=== PATIENT | male | born 1955 | race Caucasian/White ===

== ENCOUNTER → 2016-06-06 | Outpatient (CLI) | payer OTHER ==
[~2016-06-06] MED LIST: ATOR-22 PO; AZIT250T PO; GLC5 PO; GLC500 PO; LISI-461 PO
[2016-06-06 11:23] LABS: ALT/SGPT 19 U/L (12-78); AST/SGOT 6 U/L (15-37); BLOOD UREA NITROGEN 15 mg/dl (7-18); BUN/CREATININE RATIO 12.2 (10-20); CALCIUM 9.3 mg/dl (8.5-10.1); CARBON DIOXIDE 28 mmol/L (21-32); CHLORIDE 105 mmol/L (98-107); GLUCOSE 192 mg/dl (70-99); POTASSIUM 4.5 mmol/L (3.5-5.1); SODIUM 142 mmol/L (136-145)
[2016-06-06 11:24] LABS: ESTIMATED AVERAGE GLUCOSE 197 mg/dl; HA1C FLAG Normal (Normal)
[2016-06-06 11:26] LABS: CHOLESTEROL 138 mg/dl (0-200); CHOLESTEROL/HDL RATIO 4.6; HDL CHOLESTEROL 30 mg/dl; LDL CHOLESTEROL CALCULATED 65 mg/dl; TRIGLYCERIDES 215 mg/dl (0-150); VERY LOW DENSITY LIPOPROT CALC 43 mg/dl
[2016-06-06 11:44] LABS: BASO % 0.5 %; BASO ABS # 0.04 K/uL (0-0.2); COMPLETE YES; EOS % 2.7 %; HEMATOCRIT 51.3 % (42-52); IG% 0.5 %; LARGE PLATELETS 1+; LYMPH % 26.3 %; LYMPH ABS # 2.31 K/uL (1.2-3.4); MEAN CELL VOLUME 95.5 fL (80-100); MEAN CORPUSCULAR HEMOGLOBIN 34.5 pg (25-34); MEAN CORPUSCULAR HGB CONC 36.1 g/dl (32-36); MEAN PLATELET VOLUME 12.5 fL (7.4-10.4); MONO % 8.3 %; NEUT % 61.7 %; PLATELET COUNT 115 K/uL (130-400); RED BLOOD COUNT 5.37 M/uL (4.7-6.1); WHITE BLOOD COUNT 8.78 K/uL (4.8-10.8)
== END | disposition home or self-care (01) ==
LOC: C.LAB1850 10:10
PROVIDERS: ATTEND Internal Medicine
DX: E11.9 Type 2 diabetes mellitus without complications (principal)

== ENCOUNTER → 2016-11-20 | Outpatient (CLI) | payer OTHER ==
[2016-11-21 06:29] LABS: ESTIMATED AVERAGE GLUCOSE 183 mg/dl; HA1C FLAG Normal (Normal)
== END | disposition home or self-care (01) ==
LOC: C.LAB1850 15:18
PROVIDERS: ATTEND Internal Medicine
DX: E78.00 Pure hypercholesterolemia, unspecified (principal)

== ENCOUNTER → 2017-03-05 | Outpatient (CLI) | payer OTHER ==
[2017-03-05 12:35] LABS: ALT/SGPT 19 U/L (12-78); AST/SGOT 9 U/L (15-37); BLOOD UREA NITROGEN 24 mg/dl (7-18); BUN/CREATININE RATIO 21.9 (10-20); CALCIUM 9.4 mg/dl (8.5-10.1); CARBON DIOXIDE 25 mmol/L (21-32); CHLORIDE 106 mmol/L (98-107); GLUCOSE 173 mg/dl (70-99); POTASSIUM 4.3 mmol/L (3.5-5.1); SODIUM 138 mmol/L (136-145); URIC ACID 4.4 mg/dl (2.6-7.2)
[2017-03-05 12:41] LABS: HEMATOCRIT 51.9 % (42-52); MEAN CELL VOLUME 98.7 fL (80-100); MEAN CORPUSCULAR HEMOGLOBIN 33.5 pg (25-34); MEAN CORPUSCULAR HGB CONC 33.9 g/dl (32-36); MEAN PLATELET VOLUME 12.6 fL (7.4-10.4); PLATELET COUNT 129 K/uL (130-400); RED BLOOD COUNT 5.26 M/uL (4.7-6.1); WHITE BLOOD COUNT 8.41 K/uL (4.8-10.8)
[2017-03-05 12:43] LABS: BASO % 0.6 %; BASO ABS # 0.05 K/uL (0-0.2); COMPLETE YES; EOS % 3.9 %; GIANT PLATELETS 1+; HYPERSEGMENTED POLYS 1+; IG% 0.6 %; LYMPH % 27.8 %; LYMPH ABS # 2.34 K/uL (1.2-3.4); NEUT % 59.1 %; PLT ESTIMATE DECREASED
[2017-03-05 12:45] LABS: CHOLESTEROL 142 mg/dl (0-200); CHOLESTEROL/HDL RATIO 4.3; HDL CHOLESTEROL 33 mg/dl; LDL CHOLESTEROL CALCULATED 72 mg/dl; THYROID STIMULATING HORMONE 0.348 uIu/ml (0.300-4.500); TRIGLYCERIDES 187 mg/dl (0-150); VERY LOW DENSITY LIPOPROT CALC 37 mg/dl
[2017-03-05 13:46] LABS: URINE APPEARANCE CLEAR (CLEAR); URINE BILIRUBIN NEG (NEG); URINE COLOR YELLOW; URINE EPITHELIAL CELL AUTO 0-5 /lpf (0-5); URINE NITRITE NEG (NEG); URINE PH 6.5 (4.5-7.5); URINE SPECIFIC GRAVITY 1.017 (1.000-1.030); UROBILINOGEN NEG (NEG)
[2017-03-05 13:49] LABS: MANUAL MICROSCOPIC REQUIRED? NO; REVIEW REQ? NO
== END | disposition home or self-care (01) ==
LOC: C.LAB1850 09:57
PROVIDERS: ATTEND Internal Medicine
DX: R31.29 Other microscopic hematuria (principal)

== ENCOUNTER → 2017-06-14 | Outpatient (CLI) | payer OTHER ==
[2017-06-15 06:56] LABS: HEMOGLOBIN A1C 8.8 % (4.5-5.6)
== END | disposition home or self-care (01) ==
LOC: C.LAB1850 15:06
PROVIDERS: ATTEND Internal Medicine
DX: E78.00 Pure hypercholesterolemia, unspecified (principal)

== ENCOUNTER → 2017-09-16 | Outpatient (CLI) | payer OTHER ==
[2017-09-16 12:30] LABS: ALT/SGPT 17 U/L (12-78); AST/SGOT 8 U/L (15-37); BLOOD UREA NITROGEN 19 mg/dl (7-18); CALCIUM 9.5 mg/dl (8.5-10.1); CARBON DIOXIDE 28 mmol/L (21-32); CHOLESTEROL 147 mg/dl (0-200); CREATININE 1.09 mg/dl (0.60-1.40); GLUCOSE 147 mg/dl (70-99); POTASSIUM 4.3 mmol/L (3.5-5.1); SODIUM 141 mmol/L (136-145)
[2017-09-16 12:33] LABS: LDL CHOLESTEROL CALCULATED 78 mg/dl
[2017-09-16 12:42] LABS: HEMOGLOBIN A1C 7.5 % (4.5-5.6)
[2017-09-16 12:59] LABS: HEMOGLOBIN 17.3 g/dL (14.0-18.0); MEAN CORPUSCULAR HEMOGLOBIN 34.6 pg (25-34); MEAN CORPUSCULAR HGB CONC 35.3 g/dl (32-36); MEAN PLATELET VOLUME 12.2 fL (7.4-10.4); PLATELET COUNT 119 K/uL (130-400); RED CELL DISTRIBUTION WIDTH CV 13.7 % (11.5-14.5); RED CELL DISTRIBUTION WIDTH SD 48.6 fL (36.4-46.3); WHITE BLOOD COUNT 9.03 K/uL (4.8-10.8)
[2017-09-16 13:01] LABS: BASO % 0.7 %; BASO ABS # 0.06 K/uL (0-0.2); EOS ABS # 0.36 K/uL (0-0.5); IG# 0.02 K/uL (0.00-0.02); LYMPH % 23.5 %; LYMPH ABS # 2.12 K/uL (1.2-3.4); MONO % 8.1 %; MONO ABS # 0.73 K/uL (0.11-0.59); NEUT % 63.5 %; NEUT ABS # 5.74 K/uL (1.4-6.5)
== END | disposition home or self-care (01) ==
LOC: C.LAB1850 10:27
PROVIDERS: ATTEND Internal Medicine
DX: H35.30 Unspecified macular degeneration (principal)

== ENCOUNTER 2019-12-11 17:05 | Inpatient (IN) ==
[2019-12-11] MEDS ORDERED: ASPIRIN CHEW 324 MG PO STA (17:26)
[2019-12-11] MEDS ORDERED: SODIUM CHLORIDE 0.9% 1000ML 1,000 ML IV STA (17:26)
[2019-12-11] MEDS ORDERED: NITROGLYCERIN SL 0.4 MG/TAB TAB SL PRN (17:26)
[2019-12-11] MEDS ORDERED: NiCARDipine HCL INJ 2.5 MG/ML 10 ML AMP ONE (17:33)
[2019-12-11] MEDS ORDERED: HEPARIN (PORCINE) 1000 UNIT/ML 10 ML (CATH LAB USE ONLY) ONE ×2 (17:33→18:13)
[2019-12-11] MEDS ORDERED: fentaNYL citrate 100 MCG/2 ML VIAL ONE (17:34)
[2019-12-11] MEDS ORDERED: NITROGLYCERIN/D5W 100MCG/ML 20ML SYR ONE (17:34)
[2019-12-11] MEDS ORDERED: MIDAZOLAM HCL 1 MG/ML 2ML VIAL ONE (17:34)
--- NOTE | 2019-12-11 17:36 | Emergency Department Note ---
Impression & Plan Acute [place] ED Provider Note NAME: SHEILA GEORGE AGE: 64 SEX: M ARRIVES VIA: Walk-In INFORMANT: patient ED PROVIDER(S): Dario Perkins MD CHIEF COMPLAINT: Chest pain PLAN: Disposition: Admitted Condition: Guarded MEDICAL DECISION MAKING: Patient presented to the ER with acute chest pain. ECG was done in triage and revealed acute ST elevation [place] anteriorly. Heart alert was initiated. I evaluated the patient immediately. He was uncomfortable but hemodynamically stable. He was given nitroglycerin x2 and aspirin. He was feeling somewhat better with this. Consultation was placed urgently with Dr. Garg of interventional cardiology. Patient's i-STAT was unremarkable except for mild hyperglycemia. Dr. Garg promptly evaluated the patient in the ER and agreed with the assessment of acute ST elevation [place]. He consented the patient for cardiac catheterization and the patient was taken emergently to the cardiac Industrial Property Appraiser. The patient's troponin came back moderately elevated consistent with the diagnosis. Triage Nursing notes reviewed and agree them. [Additional history obtained from] patient's significant other Vital Signs: reviewed and remarkable for hypertension Differential diagnosis: Cardiac ischemia, aortic dissection, pulmonary embolism, pneumothorax, pneumonia, pericarditis, myocarditis, esophageal rupture, GERD, cholecystitis, pancreatitis, musculoskeletal, as well as other pathologies. ER treatment provided: ASA 81 x 4 NTG sl Diagnostics interpreted by me: ECG:Rate:92 Rhythm:AFIB [place]:Nml QRS:Low voltage ST segements:ST elevation anterolaterally which is new compared to 01/21/2007 Other:No pac or pvcs Cardiac Monitoring: Cardiac monitoring ordered by me: The patient was placed on continuous cardiac monitoring and observed. It revealed afib at 93 beats per minute without ectopy or evidence of dysrhythmia. Laboratory studies: [See below] unremarkable istat except for hyperglycemia. Consultation(s): Heart Alert, Cardiology- DR. iWlly Garg HPI: The patient is a 64 year old male who presents to the Emergency Room with complaints of chest pain. This started this afternoon and is left sided. The patient also notes the following associated symptoms, nausea and tingling in the fingers and jaw. The patient has taken no medication relieving factors. Current pain is rated as 6/10. notes he was complaining of chest pain intermittently over the last two weeks. Pt denies LOC, headache, fevers, chills, diaphoresis, visual changes, neck pain, breathing difficulties, vomiting , abdominal pain, back pain, melena, hematochezia, urinary symptoms, weakness, lymphadenopathy, rash, or other complaints. ROS: See above HPI for pertinent positives & negatives. A total of [10] systems reviewed and were otherwise negative. PAST MEDICAL HISTORY:[See Below] PAST SURGICAL HISTORY:[See Below] FAMILY HISTORY:[See Below] SOCIAL HISTORY:[See Below] HOME MEDICATIONS:[See Below] ALLERGIES:[See Below] VITALS:[See Below] PHYSICAL EXAMINATION: GENERAL: Awake, alert, well-appearing, in no distress HENT: Normocephalic, atraumatic. Oropharynx unremarkable. EYES: Normal conjunctiva. Sclera non-icteric. NECK: Inspection normal. Non-tender. Supple. No nuchal rigidity. FROM. No masses. RESPIRATORY: Clear to auscultation. No wheezes. No rales. Normal respiratory effort. CARDIAC: Normal rate. Normal rhythm. No murmurs. No rubs. Extremities warm and well perfused. Pulses equal. No JVD. GI: Soft, non-distended. No tenderness to palpation. No rebound or guarding. No masses. RECTAL: Deferred. MUSCULOSKELETAL: Atraumatic. Chest examination reveals no tenderness. The back is symmetrical on inspection without obvious abnormality. There is no CVA tenderness to palpation. No joint edema. LOWER EXTREMITIES: Calves are equal size bilaterally and non-tender. No edema. No discoloration. NEURO: Normal sensorium. No sensory or motor deficits noted. SKIN: No rash or jaundice noted. ED COURSE: Critical Care: I have personally spent greater than 35 minutes of critical care time in the direct management of this patient. This includes bedside care, interpretation of diagnostic studies, and testing, discussion with consultants, patient, and family members, and other required patient management activities. These minutes are in excess of all separately billable procedures. Dario Perkins MD Past Med/Surg History Medical History (Updated 12/11/19 @ 21:35 by LAUREN Kaur) Macular degeneration (Inactive) Microscopic hematuria (Inactive) Obesity (Inactive) Sciatica (Inactive) Surgical History Hx of umbilical hernia repair Social History Preferred Language: Thai Communication Ability: Effective Call Out Operator Required: No Beliefs That Will Affect Care: None Current Living Situation: Significant Other Current Living Situation Comment: life partner laura Other Information That Helps Us Care for You: No Feels Safe at Home: Yes Safety Concerns: Feels Safe At This Time Smoking Status: Current every day smoker Tobacco Type: cigarettes ; Cigarettes Per Day: smokes 3 cartons per week - 30 packs/week ; Do You Dip or Chew Tobacco: No ; Second Hand Exposure: No ; Tobacco Cessation Education Requested by Patient: Yes Hx Alcohol Use: No Hx Substance Use: No Allergies Allergies Allergy/AdvReac Type Severity Reaction Status Date / Time No Known Allergies Allergy Mild Verified 11/03/19 09:34 Home Meds Home Medications Medication Instructions Recorded Confirmed vitamins A,C,O-xfrk-lhlozw 14,320 1 cap PO BID 01/22/19 12/11/19 unit-226 mg-200 unit capsule Previous Rx's Medication Instructions Recorded gabapentin 600 mg tablet 600 mg PO HS #90 tab 07/31/19 glipizide 10 mg tablet 10 mg PO BID #180 tab 07/31/19 lisinopril 10 mg tablet 10 mg PO DAILY #90 tab 07/31/19 metformin 1,000 mg tablet 1,000 mg PO BID #180 tab 07/31/19 simvastatin 80 mg tablet 80 mg PO DAILY #90 tab 07/31/19 Results & Data (ED) Vital Signs Vital Signs - 24 hr 12/11/19 17:10 12/11/19 17:23 12/11/19 17:30 Temperature 36.6 C Temperature Source Oral Pulse Rate 88 97 H 91 H Pulse Rate [Right Apical] Pulse Rate from SpO2 Sensor 92 H 82 Pulse Rhythm [Right Apical] Pulse Strength [Right Apical] Respiratory Rate 18 24 19 Respiratory Effort / Characteristics Respiratory Depth Respiratory Pattern Blood Pressure 166/106 H 163/90 H 147/86 H Blood Pressure [Left Arm] Blood Pressure Mean 126 98 107 Blood Pressure Mean [Left Arm] Blood Pressure Position [Left Arm] Pulse Oximetry 98 97 99 Oxygen Delivery Method Room Air Room Air Oxygen Flow Rate Sepsis Recent Fever Within 48 Hours No Sepsis New/Unexplained Change in Mental Status No Sepsis Action Taken by Nursing No Action Required 12/11/19 17:37 12/11/19 17:40 12/11/19 18:55 Temperature Temperature Source Pulse Rate 98 H 111 H Pulse Rate [Right Apical] Pulse Rate from SpO2 Sensor 94 H 107 H Pulse Rhythm [Right Apical] Pulse Strength [Right Apical] Respiratory Rate 17 19 Respiratory Effort / Characteristics Non-Labored Spontaneous Respiratory Depth Normal Respiratory Pattern Regular Blood Pressure 149/103 H 145/100 H Blood Pressure [Left Arm] Blood Pressure Mean 111 112 Blood Pressure Mean [Left Arm] Blood Pressure Position [Left Arm] Pulse Oximetry 97 98 Oxygen Delivery Method Nasal Cannula Nasal Cannula Nasal Cannula Oxygen Flow Rate 2 2 4 Sepsis Recent Fever Within 48 Hours Sepsis New/Unexplained Change in Mental Status Sepsis Action Taken by Nursing 12/11/19 18:57 Temperature 36.7 C Temperature Source Oral Pulse Rate Pulse Rate [Right Apical] 91 H Pulse Rate from SpO2 Sensor Pulse Rhythm [Right Apical] Regular Pulse Strength [Right Apical] Normal Respiratory Rate 20 Respiratory Effort / Characteristics Non-Labored Spontaneous Respiratory Depth Normal Respiratory Pattern Regular Blood Pressure Blood Pressure [Left Arm] 106/67 Blood Pressure Mean Blood Pressure Mean [Left Arm] 80 Blood Pressure Position [Left Arm] Lying Pulse Oximetry 90 Oxygen Delivery Method Nasal Cannula Oxygen Flow Rate 4 Sepsis Recent Fever Within 48 Hours Sepsis New/Unexplained Change in Mental Status Sepsis Action Taken by Nursing Laboratory Data Result diagrams: 12/11/19 17:27 12/11/19 17:27 Lab Results 12/11/19 12/11/19 12/11/19 Range/Units 17:27 17:27 17:27 WBC 11.00 H (4.8-10.8) K/uL RBC 4.93 (4.7-6.1) M/uL Hgb 17.3 (14.0-18.0) g/dL POC Hgb (14.0-18.0) g/dl Hct 50.6 (42-52) % POC Hct (42-52) % MCV 102.6 H (80-100) fL MCH 35.1 H (25-34) pg MCHC 34.2 (32-36) g/dL RDW Std Deviation 53.1 H (36.4-46.3) fL RDW Coeff of Angelica 14.1 (11.5-14.5) % Plt Count 148 (130-400) K/uL MPV 12.1 H (7.4-10.4) fL Immature Gran % (Auto) 0.2 % Neut % (Auto) 62.0 % Lymph % (Auto) 26.5 % Warren % (Auto) 9.3 % Eos % (Auto) 1.5 % Baso % (Auto) 0.5 % Neut # (Auto) 6.83 H (1.4-6.5) K/uL Lymph # (Auto) 2.92 (1.2-3.4) K/uL Warren # (Auto) 1.02 H (0.11-0.59) K/uL Eos # (Auto) 0.16 (0-0.5) K/uL Baso # (Auto) 0.05 (0-0.2) K/uL Immature Gran # (Auto) 0.02 (0.00-0.02) K/uL PT 10.7 (9.0-12.0) Seconds INR 1.0 (0.9-1.1) APTT 27.7 (21.0-31.0) Seconds PTT Ratio 1.0 Activ Coag Time Kaolin (94-140) SECONDS POC Sodium (135-144) mmol/L Sodium 142 (136-145) mmol/L POC Potassium (3.3-5.0) mmol/L Potassium 4.3 (3.5-5.1) mmol/L POC Chloride (101-112) mmol/L Chloride 109 H (98-107) mmol/L Carbon Dioxide 26 (21-32) mmol/L POC Total CO2 (24-31) mmol/L Anion Gap 6.0 (3-11) POC Anion Gap (16-25) mmol/L POC BUN (7-18) mg/dl BUN 22 H (7-18) mg/dl Creatinine 1.38 (0.6-1.4) mg/dl POC Creatinine (0.6-1.3) mg/dl Est Cr Clr Drug Dosing 68.3 ml/min Est GFR ( Amer) 61.7 Est GFR (Non-Af Amer) 53.3 BUN/Creatinine Ratio 15.7 (10-20) Glucose 200 H (70-99) mg/dl POC Glucose (other) (70-99) mg/dl Calcium 9.7 (8.5-10.1) mg/dl POC Ioniz Calcium Kamla (1.12-1.32) mmol/l Total Bilirubin 0.6 (0.2-1) mg/dl AST 57 H (15-37) U/L ALT 33 (12-78) U/L Alkaline Phosphatase 78 (45-117) U/L Troponin I 15.800 H* (0-0.045) ng/ml Total Protein 7.1 (6.4-8.2) gm/dl Albumin 3.6 (3.4-5.0) gm/dl Globulin 3.5 (2.5-4.0) gm/dl Albumin/Globulin Ratio 1.0 (0.9-2) Lipase 118 (73-393) U/L 12/11/19 12/11/19 Range/Units 17:31 18:08 WBC (4.8-10.8) K/uL RBC (4.7-6.1) M/uL Hgb (14.0-18.0) g/dL POC Hgb 16.7 (14.0-18.0) g/dl Hct (42-52) % POC Hct 49 (42-52) % MCV (80-100) fL MCH (25-34) pg MCHC (32-36) g/dL RDW Std Deviation (36.4-46.3) fL RDW Coeff of Angelica (11.5-14.5) % Plt Count (130-400) K/uL MPV (7.4-10.4) fL Immature Gran % (Auto) % Neut % (Auto) % Lymph % (Auto) % Warren % (Auto) % Eos % (Auto) % Baso % (Auto) % Neut # (Auto) (1.4-6.5) K/uL Lymph # (Auto) (1.2-3.4) K/uL Warren # (Auto) (0.11-0.59) K/uL Eos # (Auto) (0-0.5) K/uL Baso # (Auto) (0-0.2) K/uL Immature Gran # (Auto) (0.00-0.02) K/uL PT (9.0-12.0) Seconds INR (0.9-1.1) APTT (21.0-31.0) Seconds PTT Ratio Activ Coag Time Kaolin 241 H (94-140) SECONDS POC Sodium 142 (135-144) mmol/L Sodium (136-145) mmol/L POC Potassium 4.3 (3.3-5.0) mmol/L Potassium (3.5-5.1) mmol/L POC Chloride 106 (101-112) mmol/L Chloride (98-107) mmol/L Carbon Dioxide (21-32) mmol/L POC Total CO2 24 (24-31) mmol/L Anion Gap (3-11) POC Anion Gap 17.0 (16-25) mmol/L POC BUN 23 H (7-18) mg/dl BUN (7-18) mg/dl Creatinine (0.6-1.4) mg/dl POC Creatinine 1.3 (0.6-1.3) mg/dl Est Cr Clr Drug Dosing ml/min Est GFR ( Amer) Est GFR (Non-Af Amer) BUN/Creatinine Ratio (10-20) Glucose (70-99) mg/dl POC Glucose (other) 200 H (70-99) mg/dl Calcium (8.5-10.1) mg/dl POC Ioniz Calcium Kamla 1.15 (1.12-1.32) mmol/l Total Bilirubin (0.2-1) mg/dl AST (15-37) U/L ALT (12-78) U/L Alkaline Phosphatase (45-117) U/L Troponin I (0-0.045) ng/ml Total Protein (6.4-8.2) gm/dl Albumin (3.4-5.0) gm/dl Globulin (2.5-4.0) gm/dl Albumin/Globulin Ratio (0.9-2) Lipase (73-393) U/L Administered Medications Gabapentin (Neurontin) 600 mg PO HS RAMU Stop: 01/10/20 20:59 Last Admin: 12/11/19 20:42 Dose: 600 mg Documented by: [id number] Sodium Chloride (Nss 1000ml) 1,000 mls @ 125 mls/hr IV .Q8H STA Stop: 12/12/19 01:25 Last Admin: 12/11/19 19:22 Dose: 125 mls/hr Documented by: [id number] Insulin Aspart (Novolog Flexpen) 0 units SC ACHS RAMU Stop: 01/10/20 20:59 Last Admin: 12/11/19 20:47 Dose: 2 units Documented by: [id number] Cosigned by: [id number] Metoprolol Tartrate (Lopressor) 25 mg PO BID RAMU Stop: 01/10/20 20:59 Last Admin: 12/11/19 20:42 Dose: 25 mg Documented by: [id number] Nitroglycerin (Nitrostat) 0.4 mg SL UD PRN PRN Reason: Chest Pain Stop: 01/10/20 17:25 Last Admin: 12/11/19 17:33 Dose: 0.4 mg Documented by: [id number] Discontinued Medications Aspirin (Aspirin) 324 mg PO NOW STA Stop: 12/11/19 17:27 Last Admin: 12/11/19 17:33 Dose: 324 mg Documented by: [id number] Eptifibatide (Integrilin (Industrial Property Appraiser Use Only)) Confirm Administered Dose 40 mg IV .STK-MED ONE Stop: 12/11/19 18:16 Last Admin: 12/11/19 18:39 Dose: 40 mg Documented by: [id number] Fentanyl Citrate (Fentanyl Citrate) Confirm Administered Dose 100 mcg .ROUTE .STK-MED ONE Stop: 12/11/19 17:35 Last Increment: 12/11/19 18:37 Dose: 50 mcg Documented by: [id number] Furosemide (Lasix) Confirm Administered Dose 40 mg IV .STK-MED ONE Stop: 12/11/19 18:30 Last Admin: 12/11/19 18:38 Dose: 40 mg Documented by: [id number] Heparin Sodium (Porcine) (Heparin Iv Bolus (Industrial Property Appraiser Use Only)) Confirm Administered Dose 10,000 units .ROUTE .STK-MED ONE Stop: 12/11/19 17:34 Last Admin: 12/11/19 18:37 Dose: 10,000 units Documented by: [id number] Heparin Sodium (Porcine) (Heparin Iv Bolus (Industrial Property Appraiser Use Only)) Confirm Administered Dose 10,000 units .ROUTE .STK-MED ONE Stop: 12/11/19 18:14 Last Admin: 12/11/19 18:38 Dose: 10,000 units Documented by: [id number] Heparin Sodium/Sodium Chloride (Heparin/Nss 1000 Unit/500ml Flush Bag) Confirm Administered Dose 3,000 units IV .STK-MED ONE Stop: 12/11/19 17:35 Last Admin: 12/11/19 18:37 Dose: 3,000 units Documented by: [id number] Midazolam HCl (Versed) Confirm Administered Dose 2 mg .ROUTE .STK-MED ONE Stop: 12/11/19 17:35 Last Admin: 12/11/19 18:37 Dose: 2 mg Documented by: [id number] Nicardipine HCl (Cardene) Confirm Administered Dose 25 mg .ROUTE .STK-MED ONE Stop: 12/11/19 17:34 Last Admin: 12/11/19 18:36 Dose: 25 mg Documented by: [id number] Nitroglycerin (Nitrostat) 0.4 mg SL NOW STA Stop: 12/11/19 17:41 Last Admin: 12/11/19 17:42 Dose: 0.4 mg Documented by: [id number] Nitroglycerin/Dextrose (Nitroglycerin/D5w 100 Mcg/Ml 20ml Syringe) Confirm Administered Dose 2,000 mcg .ROUTE .STK-MED ONE Stop: 12/11/19 17:35 Last Admin: 12/11/19 18:37 Dose: 2,000 mcg Documented by: [id number] Ticagrelor (Brilinta) Confirm Administered Dose 180 mg PO .STK-MED ONE Stop: 12/11/19 17:52 Last Admin: 12/11/19 18:38 Dose: 180 mg Documented by: [id number] Discharge Plan Visit Data *Final* Discharge Date/Time: 12/11/19 17:45 Chief Complaint: Shortness of Breath/Dyspnea Stated Complaint: TROUBLE BREATHING ED Provider: Dario Perkins Discharge Problem: Acute [place] Patient Disposition: Still a Patient Discharge Instructions Interventions: ED Discharge Assessment Last Done: 12/11/19 17:45
[2019-12-11 17:40] LABS: Basophils # (auto) 0.05 K/uL (0-0.2); Basophils % (auto) 0.5 %; Eosinophils # (auto) 0.16 K/uL (0-0.5); Eosinophils % (auto) 1.5 %; Hematocrit (blood only) 50.6 % (42-52); Hemoglobin 17.3 g/dL (14.0-18.0); Immature Granulocytes # (auto) 0.02 K/uL (0.00-0.02); Immature Granulocytes % (auto) 0.2 %; Lymphocytes # (auto) 2.92 K/uL (1.2-3.4); Lymphocytes % (auto) 26.5 %; Mean Corpuscular Hemoglobin 35.1 pg (25-34); Mean Corpuscular Hgb Conc 34.2 g/dL (32-36); Mean Corpuscular Volume 102.6 fL (80-100); Mean Platelet Volume 12.1 fL (7.4-10.4); Monocytes # (auto) 1.02 K/uL (0.11-0.59); Monocytes % (auto) 9.3 %; Neutrophils # (auto) 6.83 K/uL (1.4-6.5); Platelet Count 148 K/uL (130-400); RDW Coefficient of Variation 14.1 % (11.5-14.5); RDW Standard Deviation 53.1 fL (36.4-46.3); Red Blood Count 4.93 M/uL (4.7-6.1)
[2019-12-11] MEDS ORDERED: NITROGLYCERIN SL 0.4 MG/TAB TAB SL STA (17:40)
[2019-12-11 17:43] LABS: iSTAT Creatinine 1.3 mg/dl (0.6-1.3); iSTAT Hemoglobin 16.7 g/dl (14.0-18.0); iSTAT Ionized Calcium 1.15 mmol/l (1.12-1.32); iSTAT Potassium 4.3 mmol/L (3.3-5.0)
[2019-12-11 17:50] LABS: Partial Thromboplastin Time 27.7 Seconds (21.0-31.0); Prothrombin Time 10.7 Seconds (9.0-12.0)
[2019-12-11] MEDS ORDERED: TICAGRELOR 90 MG TAB PO ONE (17:51)
--- NOTE | 2019-12-11 17:53 | Pre Anesthesia Assessment ---
Date of Service December 11, 2019 Pre Sedation Assessment Vital Signs Temp Pulse Resp BP Pulse Ox 12/11/19 17:40 111 H 19 145/100 H 98 12/11/19 17:37 98 H 17 149/103 H 97 12/11/19 17:30 91 H 19 147/86 H 99 12/11/19 17:23 97 H 24 163/90 H 97 12/11/19 17:10 97.9 F 88 18 166/106 H 98 Cardiovascular RRR, no murmur, no edema Respiratory normal respiratory effort, lungs clear to auscultation Pre-Sedation Airway Assessment Smoking Status: Never smoker Hx Sleep Apnea: No Hx Difficult Intubation: No Short, Thick Neck: No Thyromental Distance: > or= 3.5 Finger Breadths Oral Cavity: + WNL Mallampati Class: III ASA: ASA4 Procedure Planning Contraindications for Sedation: none Current Medications Reviewed: Yes Notes The planned sedation has been discussed with the patient. Informed Consent was obtained. I have identified the patient, determined the appropriateness of sedation and have assessed the patient immediately prior to the procedure. All medicine(s) and interventions are by my order.
[2019-12-11 17:55] LABS: Albumin Level 3.6 gm/dl (3.4-5.0); BUN Creatinine Ratio 15.7 (10-20); Calcium 9.7 mg/dl (8.5-10.1); Creatinine Clr Calc Pharmacy 68.3 ml/min; Est GFR (African American) 61.7; Est GFR (Non-African American) 53.3; Potassium 4.3 mmol/L (3.5-5.1)
--- NOTE | 2019-12-11 17:56 | Cardiology Consultation ---
Date of Consultation December 11, 2019 Assessment & Plan (1) Acute MN: Presentation consistent with anterior STEMI and recommend proceeding with emergent cardiac catheterization and likely primary PCI. No apparent contraindications to procedure. Discussed risks, benefits, alternatives of procedure with patient and they are willing to proceed. Given ticagrelor 180 mg in the ED. Further recommendations pending findings of coronary angiography. History of Present Illness History of Present Illness 64-year-old man here with acute chest pain and ECG concerning for acute MN. Patient seen emergently in the ED after heart alert activated on arrival. Patient reportedly had atrial fibrillation with an episode of pneumonia during her prior hospitalization but was unaware of any cardiac issues. Cardiac risk factors include type 2 diabetes on oral therapy, hypertension, dyslipidemia, CKD, obesity and ongoing tobacco abuse. Other medical issues include lumbar radiculopathy and diabetes complicated neuropathy and macular degeneration. Chest pain began approximately 3 PM around 2 hours prior to arrival while at rest. Describes substernal crushing pain with associated diaphoresis. Had stuttering episodes of chest pain with arm numbness beginning 3 days ago most notably after coming from the heat. Chest pain at time of arrival 01/10. Partially improved with nitroglycerin. Hemodynamically stable. EKG showed atrial fibrillation with anterior ST elevations. Allergies Allergy/AdvReac Type Severity Reaction Status Date / Time No Known Allergies Allergy Mild Verified 11/03/19 09:34 Home Medications Home Medications Medication Instructions Recorded Confirmed Type vitamins A,C,Y-ldhg-rjfkui 14,320 1 cap PO BID 01/22/19 11/03/19 History unit-226 mg-200 unit capsule gabapentin 300 mg capsule 300 mg PO QAM #90 cap 07/31/19 11/03/19 Rx gabapentin 600 mg tablet 600 mg PO HS #90 tab 07/31/19 11/03/19 Rx glipizide 10 mg tablet 10 mg PO BID #180 tab 07/31/19 11/03/19 Rx lisinopril 10 mg tablet 10 mg PO DAILY #90 tab 07/31/19 11/03/19 Rx metformin 1,000 mg tablet 1,000 mg PO BID #180 tab 07/31/19 11/03/19 Rx simvastatin 80 mg tablet 80 mg PO DAILY #90 tab 07/31/19 11/03/19 Rx triamcinolone acetonide 0.1 % 1 appln TOP BID #453.6 gm 11/03/19 11/03/19 Rx topical cream Patient History Medical History (Updated 12/11/19 @ 17:30 by Dario Perkins MD) Macular degeneration (Inactive) Microscopic hematuria (Inactive) Obesity (Inactive) Sciatica (Inactive) Surgical History Hx of umbilical hernia repair Social History Preferred Language: Romansh Communication Ability: Effective Feels Safe at Home: Yes Smoking Status: Never smoker Tobacco Type: cigarettes ; Review of Systems Review of Systems: All systems reviewed & are unremarkable except as noted in HPI & below Physical Exam Physical Exam: General: Obese, uncomfortable HEENT: Sclerae anicteric, mucous membranes moist Lungs: Tachypneic, lungs clear Cardiac: Tachycardic, regular, no murmurs Abdomen: Soft, nontender, nondistended, positive bowel sounds. Extremities: Warm, well perfused, no edema. 2+ radial pulses Skin: No rashes or lesions. Neuro: Nonfocal Psych: Alert orient x3, normal affect and mood Results & Data ([facility]) Vital Signs (Past 12 Hours) Vital Signs Temp Pulse Resp BP Pulse Ox 12/11/19 17:40 111 H 19 145/100 H 98 12/11/19 17:37 98 H 17 149/103 H 97 12/11/19 17:30 91 H 19 147/86 H 99 12/11/19 17:23 97 H 24 163/90 H 97 12/11/19 17:10 97.9 F 88 18 166/106 H 98 PG Care Time/CCT Total # of Minutes Spent Total Time Spent with Patient: Total time spent is greater than 50% in coordination of care (as documented) at patient's floor/unit and/or counseling patient: Coding Level of Care Code 44053 Inpt Consult Level 5 Diagnoses Acute MN I21.9
[2019-12-11 18:03] LABS: Bilirubin,Total 0.6 mg/dl (0.2-1); Globulin 3.5 gm/dl (2.5-4.0); Total Protein 7.1 gm/dl (6.4-8.2); Troponin I 15.8 ng/ml (0-0.045)
[2019-12-11] MEDS ORDERED: EPTIFIBATIDE 2 MG/ML 10 ML VIAL (CATH LAB USE ONLY) IV ONE (18:15)
[2019-12-11] MEDS ORDERED: FUROSEMIDE 40 MG/4 ML VIAL IV ONE (18:29)
--- NOTE | 2019-12-11 18:45 | Post Anesthesia Assessment ---
Date of Service December 11, 2019 Post Sedation Assessment Vital Signs Temp Pulse Resp BP Pulse Ox 12/11/19 17:40 111 H 19 145/100 H 98 12/11/19 17:37 98 H 17 149/103 H 97 12/11/19 17:30 91 H 19 147/86 H 99 12/11/19 17:23 97 H 24 163/90 H 97 12/11/19 17:10 97.9 F 88 18 166/106 H 98 Recovery Score Activity: Moves 4 extremities Respiration: Deep Breath/Cough Circulation: +/-20% PreAnes Value Consciousness: Fully Awake Oxygen Saturation: O2 needed for >90% Discharge Sedation Level of Care: Fast Track Phase II Post Sedation Plan On clinical assessment, the patient appears to have tolerated the sedation without complications. Patient is recovering as anticipated. Patient will continue to be monitored by nursing and may be discharged when sedation discharge criteria are met per below protocol. Upon Completions of procedure up to 15 minutes continue every 5 minute vital signs and the P.A.R. score; then discharge to a Phase I or Fast Track to Phase II per the following guidelines: * Discharge Patient to appropriate Phase II area if PAR is 8 or greater or return to pre- procedure baseline. The post - procedure orders will be as directed. * If PAR score is less than 8 or not return to pre-procedure baseline then patient will follow Phase I monitoring till PAR is reached for Phase II. The Phase I may be done in procedure room or may call to secure a Phase I area. * If naloxone or flumazenil are used for reversal, hold in Phase I for continued monitoring from when last reversal dose was given for a minimum of 60 minutes or longer pending the nurse and/or physician discretion of patient condition before discharge to Phase II. Please call the Sedation Physician to re-evaluate and complete post-note for discharge to Phase II area. Do NOT discharge from procedure sedation or Phase 1 until post- sedation evaluation note is complete by procedure /sedation MD Sedation Discharge Instructions to be given to the patient at discharge to home.
--- NOTE | 2019-12-11 18:49 | Cardiac Catheterization ---
ACC Data: [place] Cardiac Status Clinical evaluation leading to the procedure CAD Presenation: STEMI Anginal Classification: CCS IV Heart Failure: No Cardiogenic Shock within 24 Hours: No Cardiac Arrest within 24 Hours: No Imaging Studies Past 6 Months: No Stress Studies Past 6 Months: No Left Ventricular Angiography EF (%): 45-50 Wall Motion: Anterior Mitral Regurgitation: None Diagnostic Physicians Name: Willy Garg MD Status: Emergency Closure Device Percutaneous Entry Location: Radial Closure Device: Radial Band Recommendations: PCI without planned CABG PCI Indication: Immediate PCI for STEMI Lesion Segment Name: Proximal LAD Culprit Artery: Yes Stenosis Prior to Rx (%): 100 Chronic Total Occlusion: No IVUS: No FFR: No Pre-Procedure LINDA Flow: 0 Previously Treated Lesion: No Lesion Complexity: Non-High/Non-C Lesion Length (mm): 20 Thrombus Present: Yes Bifurcation Lesion: No Guidewire Across Lesion: Stenosis Post-Procedure (%): 0 Post-Procedure LINDA Flow: 3 Devices(s) Deployed: Yes Yes Intraprocedure Events Significant Disection: No Perforation: No Cardiac Cath Procedure Full Procedure Date December 11, 2019 Pre-Procedure Diagnosis Pre-Procedure Diagnosis: STEMI AUC Score AUC Score: 9 Post-Procedure Diagnosis Post-Procedure Diagnosis: Severe CAD, Successful PCI and Elevated Intracardiac Pressures Procedure(s) Performed Procedure(s) Performed: Coronary Angiography, Left Heart Cath and Drug Eluting Stent Oracle Technical Architect Willy Garg MD Storage Facility Rental Clerk(s) [place] Estimated Blood Loss Estimated Blood Loss: 15 Medication(s) Medication(s): Fentanyl, Heparin, Integrilin, Lidocaine 1%, Nicardipine, Nitroglycerin and Versed Medication(s): Ticagrelor Summary of Findings Indication: STEMI/Heart Alert Access: 6 Fr slender right radial artery Catheters: EBU 3.5 guide, JR4, pigtail Findings: LM -large caliber, luminal regular LAD -large caliber vessel, 100% proximal occlusion. After flow reestablished mid segment luminal irregularities up to 40% stenosis. Large distal vessel wraps around apex. Medium caliber diagonals without significant disease. Circumflex -medium caliber vessel, luminal irregularities, small OM1 and left PLB without significant disease RCA -large caliber vessel, dominant, 30% mid segment disease, distal luminal irregularities, PDA, PLB without significant disease LVEDP -22 Limited LV gramLVEF 45 to 50% with apical anterior hypokinesis -- PCI -- Antithrombotic therapy: Heparin, ticagrelor Procedure: Left main cannulated with EBU 3.5 guide BMW wire passed across lesion into distal vessel Proximal LAD lesion predilated with 2.5 compliant balloon Dilated lesion stented with 4.0 x 28 mm Xience drug-eluting Stent post-dilated with 5.0 noncompliant balloon to high atmospheres IC vasodilators administered for spasm Some question of distal thrombus emboli and given IC Integrilin Post procedure LINDA 3 flow, stent well expanded with minimal residual stenosis and no apparent cardiac complications. Arterial Closure: TR band Summary: 1. Anterior STEMI/Occluded proximal LAD 2. Minimal non-culprit coronary artery disease -40% mid LAD 30% mid RCA 3. Elevated intracardiac filling pressure 4. Successful PCI of proximal LAD with single drug-eluting stent (4.0 x 28 mm Xience; postdilated with 5.0 NC balloon). Recommendations: Admit to ICU for continued monitoring Loaded with ticagrelor 180 mg in cath With now recurrent atrial fibrillation will discuss long-term anticoagulation with patient in a.m. In that setting would recommend triple therapy with aspirin, clopidogrel and Eliquis for 2 weeks and then dual therapy with clopidogrel, Eliquis for 1 year Trend troponins until peak, Check Echo Uptitrate beta-inna/SUZANNA as BP allows High-dose statin Consult cardiac Rehab Given 1 dose of IV Lasix in [place]. Smoking cessation Hemodynamics Rest Ao:: 124/76/103 Final Ao: 111/73/88 LV: 124/22 Recommendations Recommendations: PCI without planned CABG Specimens Specimens: None Radiation Exposure (mGy) 2770 Contrast (mls) 150 Fluids (cc crystalloids) Fluids (cc crystalloids): 60 Drains Drains: None Anesthesia Moderate Procedural Complication(s) None Disposition ICU I attest to the content of the Intraoperative Record and any orders documented therein. Any exceptions are noted below. [facility] Card Cath Procedure Codes Cardiac Catheterization Procedure 1: Cardiovascular Cath Procedures: 30761 Coronaries and LHC (+/-LV) Moderate Sedation Procedure 1: Sedation/Anesthesia: 78750 Mod Sedation by the same physician;Init15 Min Child Age 5 & Up Procedure 2: Sedation/Anesthesia: 02054 Mod Sedation by the same physician; Ea [id number] Minutes Stenting Procedure 1: Cardiovascular Stent Procedures: 56768 Perc transluminal revascularization of acute sub/total occl, aMI PG Care Time/CCT Total # of Minutes Spent Total Time Spent with Patient: Total time spent is greater than 50% in coordination of care (as documented) at patient's floor/unit and/or counseling patient:
[2019-12-11] MEDS ORDERED: ONDANSETRON INJ 2 MG/ML 2 ML VIAL IV PRN (18:57)
[2019-12-11] MEDS ORDERED: ICU PROTOCOL FOR HYPERGLYCEMIA PRN (18:57)
[2019-12-11] MEDS ORDERED: ACETAMINOPHEN 325 MG TAB PO PRN (18:57)
--- NOTE | 2019-12-11 19:32 | Critical Care Consultation ---
Date of Consultation December 11, 2019 Assessment & Plan (1) STEMI (ST elevation myocardial infarction): Impression: 64-year-old male with acute CO with ST elevation in anterior leads presents post cath where he received MICHELE to proximal LAD x1 Neuro - [facility] ICU: Negative Diabetic neuropathycontinue gabapentin Cardiac - STEMIstatus post successful PCI with single MICHELE to the proximal LAD which was 100% occluded -Patient's chest pain and ST elevation on EKG have improved following catheterization with PCI -We will trend troponins for peak -Aspirin, Brilinta, Lipitor, MTP, lisinopril -A1c 5.9, follow-up lipid panel in a.m. -Maximize electrolyte -Follow-up echo in a.m. -Continuous monitoring telemetry in ICU for tonight PAFpatient reports to have had A. 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 -Now in sinus rhythm on telemetry -Patient will likely need long-term anticoagulation -We will maximize electrolytes, and continue to monitor on telemetry Respiratory - Patient has history of 50 years of cigarette smoking, no diagnosis of COPD -Currently maintaining oxygen saturation on room air, will continue to monitor with a continuous pulse ox GI - Heart healthy diet RENAL/LYTES - CKDcreatinine 1.38, mildly elevated from prior studies -We will continue to trend with BMPs and monitor for development of PERLA -Continue IV fluid resuscitation -Avoid nephrotoxins Monitor electrolytes and replete as indicated for potassium greater than 4 and magnesium greater than 2 - Strict I's and O ENDO - DM type II (controlled)patient's hemoglobin A1c 5.9, controlled with glipizide and metformin -Holding oral medications, will transition to sliding scale -ICU hyperglycemic protocol No history of thyroid disease, TSH within normal limits HEME - H&H stable, monitor routine CBCs ID - No indication for infectious process at this time LINES/IV ACCESS - Peripheral IVs DVT PROPHYLAXIS - SCDs, heparin Thank you for allowing us to participate in the care of this patient. Please refer to my attending physician's documentation for any further recommendations. (2) Diabetes mellitus type II, controlled: (3) Acute CO: (4) Diabetic peripheral neuropathy: (5) Hypercholesterolemia: (6) Hypertension: (7) Paroxysmal atrial fibrillation: (8) CKD (chronic kidney disease): History of Present Illness Attending Physician: Willy Garg MD History of Present Illness Mr. Thornton is a 64-year-old male with PMH of DM type II, diabetic neuropathy, macular degeneration, HTN, dyslipidemia, CKD, and smoker, and recent episode of A. fib when he was admitted for pneumonia. He presented to the emergency department with substernal chest pain 8 out of 10 with associated diaphoresis while at rest which started around [address] elevation on his anterior leads of his EKG and heart alert was initiated. He was loaded with Brilinta in the emergency department and was taken to the Signal Tower Operator where he was found to have 100% occlusion of the proximal LAD. He received successful PCI of proximal LAD with single drug-eluting stent. He was noted to have run of atrial fibrillation during procedure but is converted to sinus rhythm. Post-cath patient was transferred to ICU for monitoring following STEMI with PCI. On arrival to the ICU the patient appears comfortable and is alert and oriented and reports chest pain minimal of 1 out of 10 and much improved from earlier. Repeat EKG shows improvement in ST elevation. Currently the patient denies headache, dizziness, syncope, shortness of breath, palpitations, nausea or vomiting, abdominal pain. He denies recent illness or fevers. Allergies Allergy/AdvReac Type Severity Reaction Status Date / Time No Known Allergies Allergy Mild Verified 11/03/19 09:34 Home Medications Home Medications Medication Instructions Recorded Confirmed Type vitamins A,C,D-pyym-mpomie 14,320 1 cap PO BID 01/22/19 12/11/19 History unit-226 mg-200 unit capsule gabapentin 600 mg tablet 600 mg PO HS #90 tab 07/31/19 12/11/19 Rx glipizide 10 mg tablet 10 mg PO BID #180 tab 07/31/19 12/11/19 Rx lisinopril 10 mg tablet 10 mg PO DAILY #90 tab 07/31/19 12/11/19 Rx metformin 1,000 mg tablet 1,000 mg PO BID #180 tab 07/31/19 12/11/19 Rx simvastatin 80 mg tablet 80 mg PO DAILY #90 tab 07/31/19 12/11/19 Rx Patient History Medical History Diabetes mellitus type II, controlled (Chronic) Diabetic peripheral neuropathy (Chronic) Hypercholesterolemia (Chronic) Hypertension (Chronic) Lumbosacral radiculopathy (Chronic) Macular degeneration (Inactive) Microscopic hematuria (Inactive) Obesity (Inactive) Sciatica (Inactive) Surgical History Hx of umbilical hernia repair Social History Preferred Language: Prydein[place] Communication Ability: Effective Health And Safety Instructor Required: No Beliefs That Will Affect Care: None marital status: Current Living Situation: Significant Other Current Living Situation Comment: life partner laura Other Information That Helps Us Care for You: No Feels Safe at Home: Yes Safety Concerns: Feels Safe At This Time Smoking Status: Current every day smoker Tobacco Type: cigarettes ; Cigarettes Per Day: smokes 3 cartons per week - 30 packs/week ; Do You Dip or Chew Tobacco: No ; Second Hand Exposure: No ; Tobacco Cessation Education Requested by Patient: Yes Hx Alcohol Use: No Hx Substance Use: No Review of Systems Review of Systems: All systems reviewed & are unremarkable except as noted in HPI & below Physical Exam Constitutional: WD/WN, vitals as above Eyes: PERRL, conjunctivae normal, anicteric sclerae ENMT: external ear and nose normal, oropharynx normal Neck: trachea midline, no thyromegaly Respiratory: normal respiratory effort, lungs clear to auscultation Cardiovascular: RRR, no murmur, no edema Heart Sounds: normal S1 and normal S2 Gastrointestinal (Abdomen): normal bowel sounds, soft, nontender, no hepatosplenomegaly Skin: no rashes, warm and dry Neurologic: PERRL, EOMI, accommodation nl, no face palsy, no dysarthria Psychiatric: A+Ox3, euthymic affect Results & Data Results & Data ([facility]) Vital Signs (Past 12 Hours) Vital Signs Temp Pulse Pulse Resp BP BP Pulse Ox 12/11/19 19:12 88 20 114/71 92 12/11/19 18:57 36.7 C 91 H 20 106/67 90 12/11/19 17:40 111 H 19 145/100 H 98 12/11/19 17:37 98 H 17 149/103 H 97 12/11/19 17:30 91 H 19 147/86 H 99 12/11/19 17:23 97 H 24 163/90 H 97 12/11/19 17:10 36.6 C 88 18 166/106 H 98 Coding Level of Care Code 24034 Inpt Consult Level 5 Diagnoses STEMI (ST elevation myocardial infarction) I21.3 Diabetes mellitus type II, controlled E11.9 Acute CO I21.9 Diabetic peripheral neuropathy E11.42 Hypercholesterolemia E78.00 Hypertension I10 Paroxysmal atrial fibrillation I48.0 CKD (chronic kidney disease) N18.9
--- NOTE | 2019-12-11 19:44 | History & Physical Report ---
Date of Service December 11, 2019 Assessment & Plan (1) STEMI (ST elevation myocardial infarction): ASA 81mg PO daily, Currently on Brilinta but will defer possibly switch to Plavix if going on apixaban for initial triple therapy Metoprolol tartrate 25mg PO BID Lisinopril 5mg PO daily Atorvastatin 80mg PO QAM Stop ibuprofen HbA1C, lipid panel with AM labs (2) Diabetes mellitus type II, controlled: HbA1C (previously 5.9), repeat with AM labs Stop glipizide Consult pharmacy glycemic control with bolus sliding scale insulin +/- basal (3) Diabetic peripheral neuropathy: Continue home dose Gabapentin 600mg HS (4) Hypercholesterolemia: Switch to high intensity atorvastatin from simvastatin (5) Hypertension: Continue lisinopril 5mg PO daily (6) Lumbosacral radiculopathy: Stop ibuprofen Use acetaminophen for pain Early ambulation when cleared by cardiology (7) Paroxysmal atrial fibrillation: Rate control with metoprolol tartrate 25mg PO BID Anticoagulation as per cardiology. Planning on starting Eliquis possibly tomorrow (8) Tobacco use disorder: 2 packs/day Discussed smoking cessation Refused nicotine replacement products at the current time (9) DVT prophylaxis: SCDs for now, will go on full anticoagulation as discussed with Dr Garg Admission and Anticipated Discharge Date Admission Date: December 11, 2019 History of Present Illness Chief Complaint: STEMI Primary Care Provider: Behzad Ortega MD Matthew Thornton is a 64 year old male who presented to the ER as a heart alert with severe substernal chest pain. He reports intermittent jaw and right arm tingling with feeling hot and occasional episode on exertion for the past 4 days. Actually was doing better yesterday as he wasn't moving around much. How ever on walking up the stairs today around 3pm he had sudden onset 8/10 pain which did not relieve until coronary artery intervention in the blood bank laboratory technologist. Associated diaphoresis. In the ER patient was in atrial fibrillation with ST elevations in anterior leads and he was taken emergently to the blood bank laboratory technologist. Patient had ST elevation on his anterior leads of his EKG and heart alert was initiated. Patient given ASA and loaded with Brillinta. 100% occluded proximal LAD, received successful PCI with single drug-eluting stent. Patient remains in atrial fibrillation post cardiac stent. His main concern at present is his chronic left lumbar radiculopathy and diabetic neuropathy for which he takes ibuprofen 400-600mg BID. Significant risk factors with smoking 2 packs/day, obesity, HTN, hyperlipidemia, diabetes. Allergies Allergy/AdvReac Type Severity Reaction Status Date / Time No Known Allergies Allergy Mild Verified 11/03/19 09:34 Home Medications Home Medications Medication Instructions Recorded Confirmed Type vitamins A,C,N-pydu-lfzvzl 14,320 1 cap PO BID 01/22/19 12/11/19 History unit-226 mg-200 unit capsule gabapentin 600 mg tablet 600 mg PO HS #90 tab 07/31/19 12/11/19 Rx glipizide 10 mg tablet 10 mg PO BID #180 tab 07/31/19 12/11/19 Rx lisinopril 10 mg tablet 10 mg PO DAILY #90 tab 07/31/19 12/11/19 Rx metformin 1,000 mg tablet 1,000 mg PO BID #180 tab 07/31/19 12/11/19 Rx simvastatin 80 mg tablet 80 mg PO DAILY #90 tab 07/31/19 12/11/19 Rx Past Med/Surg History Medical History Diabetes mellitus type II, controlled (Chronic) Diabetic peripheral neuropathy (Chronic) Hypercholesterolemia (Chronic) Hypertension (Chronic) Lumbosacral radiculopathy (Chronic) Macular degeneration (Inactive) Microscopic hematuria (Inactive) Obesity (Inactive) Sciatica (Inactive) Surgical History Hx of umbilical hernia repair Social History Preferred Language: Ukrainian Communication Ability: Effective Radio Station Manager Required: No Beliefs That Will Affect Care: None marital status: Current Living Situation: Significant Other Current Living Situation Comment: life partner laura Other Information That Helps Us Care for You: No Feels Safe at Home: Yes Safety Concerns: Feels Safe At This Time Smoking Status: Current every day smoker Tobacco Type: cigarettes ; Cigarettes Per Day: smokes 3 cartons per week - 30 packs/week ; Do You Dip or Chew Tobacco: No ; Second Hand Exposure: No ; Tobacco Cessation Education Requested by Patient: Yes Hx Alcohol Use: No Hx Substance Use: No Review of Systems Review of Systems: All systems reviewed & are unremarkable except as noted in HPI & below Musculoskeletal: + radicular pain (left sided) Endocrine: bilateral feet neuropathy Physical Exam Constitutional: well developed; + not well nourished and no acute distress Eyes: + anicteric sclerae; normal pupil size ENMT: external ear and nose normal, oropharynx normal Neck: trachea midline, no thyromegaly Respiratory: normal respiratory effort, lungs clear to auscultation Cardiovascular: Rate/Rhythm: regular rate and + irregularly irregular Heart Sounds: no murmur Vessels: no JVD Extremities: normal capillary refill and + pedal edema (trace b/l equal); no calf tenderness Gastrointestinal (Abdomen): normal bowel sounds, soft, nontender, no hepatosplenomegaly Musculoskeletal: no cyanosis or clubbing, extremities motor strength 5/5 Skin: no rashes, warm and dry Neurologic: moves all extremities and awake; no focal motor deficits and not confused Psychiatric: A+Ox3, euthymic affect Results & Data Results & Data ([facility]) Vital Signs (Past 12 Hours) Vital Signs Temp Pulse Pulse Resp BP BP Pulse Ox 12/11/19 19:27 97 H 20 115/86 93 12/11/19 19:12 88 20 114/71 92 12/11/19 18:57 36.7 C 91 H 20 106/67 90 12/11/19 17:40 111 H 19 145/100 H 98 12/11/19 17:37 98 H 17 149/103 H 97 12/11/19 17:30 91 H 19 147/86 H 99 12/11/19 17:23 97 H 24 163/90 H 97 12/11/19 17:10 36.6 C 88 18 166/106 H 98 ECG Indication: chest pain Rate (beats per minute): 89 Rhythm: atrial fibrillation Findings: + other (right axis deviation) and + ST elevation (Anterior) Comparison ECG Date: no prior available Code Status & VTE Plan Code Status Full as discussed with the patient and his VTE Prophylaxis Plan VTE Prophylaxis will be ordered: Yes PG Care Time/CCT Total # of Minutes Spent Total Time Spent with Patient: Total time spent is greater than 50% in coordination of care (as documented) at patient's floor/unit and/or counseling patient: Coding Level of Care Code 53101 Initial Inpt Care Lvl 3 Diagnoses STEMI (ST elevation myocardial infarction) I21.3 Diabetes mellitus type II, controlled E11.9 Diabetic peripheral neuropathy E11.42 Hypercholesterolemia E78.00 Hypertension I10 Lumbosacral radiculopathy M54.17 Paroxysmal atrial fibrillation I48.0 Tobacco use disorder F17.200 DVT prophylaxis Z29.9
[2019-12-11] MEDS ORDERED: PHARMACY GLYCEMIC MGMT CONSULT PRN (19:53)
[2019-12-11] MEDS ORDERED: GLUCOSE 10 TABS/TUBE PO PRN (20:00)
[2019-12-11] MEDS ORDERED: GLUCOSE 40% GEL 15 GM TUBE PO PRN (20:00)
[2019-12-11] MEDS ORDERED: CARBOHYDRATES FOR HYPOGLYCEMIA PO PRN (20:00)
[2019-12-11] MEDS ORDERED: DEXTROSE 50% 50 ML SYRINGE IV PRN (20:00)
[2019-12-11] MEDS ORDERED: GLUCAGON FOR INJ 1 MG VIAL SQ PRN (20:00)
[2019-12-11 20:19] LABS: Appearance Urine Clear (Clear); Bacteria Urine Automated Negative (Negative); Bilirubin Urine Negative (Negative); Blood Urine 1+ (Negative); Color Urine Yellow; Epithelial Cell Urine Auto 0-5 /lpf (0-5); Glucose Urine UA Trace (Negative); Ketones Urine Negative (Negative); Leukocyte Esterase Urine Negative (Negative); Nitrite Urine Negative (Negative); Protein Urine Negative (Negative); RBC Urine Automated 0-4 /hpf (0-4); Specific Gravity Urine 1.022 (1.000-1.030); Urobilinogen Urine Negative (Negative); WBC Urine Automated 0 /hpf (0-5)
[2019-12-11] MEDS: METOPROLOL TARTRATE 25 MG TAB PO SCH (20:42)
[2019-12-11] MEDS: GABAPENTIN 600 MG TAB PO SCH (20:42)
[2019-12-11] MEDS: INSULIN ASPART 100 UNITS/ML 3 ML PEN SC SCH ×2 (20:47→23:59)
[2019-12-12] MEDS: INSULIN ASPART 100 UNITS/ML 3 ML PEN SC SCH ×5 (03:53→20:45)
[2019-12-12 06:23] LABS: Basophils # (auto) 0.02 K/uL (0-0.2); Basophils % (auto) 0.1 %; Eosinophils # (auto) 0.03 K/uL (0-0.5); Eosinophils % (auto) 0.2 %; Hematocrit (blood only) 45.1 % (42-52); Hemoglobin 14.9 g/dL (14.0-18.0); Immature Granulocytes # (auto) 0.03 K/uL (0.00-0.02); Immature Granulocytes % (auto) 0.2 %; Lymphocytes # (auto) 1.55 K/uL (1.2-3.4); Lymphocytes % (auto) 11.3 %; Mean Corpuscular Hemoglobin 33.6 pg (25-34); Mean Corpuscular Volume 101.8 fL (80-100); Mean Platelet Volume 11.6 fL (7.4-10.4); Monocytes # (auto) 1.14 K/uL (0.11-0.59); Monocytes % (auto) 8.3 %; Neutrophils # (auto) 10.92 K/uL (1.4-6.5); Neutrophils % (auto) 79.9 %; Platelet Count 120 K/uL (130-400); RDW Coefficient of Variation 13.9 % (11.5-14.5); RDW Standard Deviation 52.2 fL (36.4-46.3); Red Blood Count 4.43 M/uL (4.7-6.1); White Blood Count 13.69 K/uL (4.8-10.8)
[2019-12-12 07:02] LABS: BUN Creatinine Ratio 22.3 (10-20); Calcium 8.6 mg/dl (8.5-10.1); Creatinine Clr Calc Pharmacy 96.3 ml/min; Est GFR (African American) 93.4; Est GFR (Non-African American) 80.6; Magnesium 1.9 mg/dl (1.8-2.4); Potassium 4.1 mmol/L (3.5-5.1)
[2019-12-12 07:05] LABS: Phosphorus 2.6 mg/dl (2.5-4.9)
[2019-12-12 07:07] LABS: Estimated Average Glucose 123 mg/dl; Hemoglobin A1C 5.9 % (4.5-5.6)
[2019-12-12] MEDS ORDERED: MAGNESIUM SULFATE / D5W 1 GM/100 ML BAG IV ONE (07:15)
--- NOTE | 2019-12-12 07:35 | Electrocardiogram Report ---
Test Reason : Blood Pressure : / mmHG Vent. Rate : 092 BPM Atrial Rate : 096 BPM P-R Int : 000 ms QRS Dur : 110 ms QT Int : 354 ms P-R-T Axes : 000 079 034 degrees QTc Int : 437 ms Atrial fibrillation Low voltage QRS Anteroseptal infarct ST elevation consider anterior injury or acute infarct ACUTE CT / STEMI Abnormal ECG When compared with ECG of 21-JAN-2007 06:55, Anterior ST elevation is now present Confirmed by Jose De Jesus Cho ([id number]) on 12/12/2019 7:35:27 AM Referred By: REFERRED SELF Confirmed By:Jose De Jesus Cho
--- NOTE | 2019-12-12 07:37 | Electrocardiogram Report ---
Test Reason : Blood Pressure : / mmHG Vent. Rate : 089 BPM Atrial Rate : 080 BPM P-R Int : 000 ms QRS Dur : 116 ms QT Int : 408 ms P-R-T Axes : 000 100 102 degrees QTc Int : 496 ms Atrial fibrillation Rightward axis Anteroseptal infarct (cited on or before 11-DEC-2019) ST elevation consider anterior injury or acute infarct ACUTE ID / STEMI Abnormal ECG When compared with ECG of 11-DEC-2019 17:19, No significant change Confirmed by Jose De Jesus Cho ([id number]) on 12/12/2019 7:37:11 AM Referred By: REFERRED SELF Confirmed By:Jose De Jesus Cho
--- NOTE | 2019-12-12 07:43 | Electrocardiogram Report ---
Test Reason : Blood Pressure : / mmHG Vent. Rate : 074 BPM Atrial Rate : 278 BPM P-R Int : 000 ms QRS Dur : 114 ms QT Int : 396 ms P-R-T Axes : -89 085 059 degrees QTc Int : 439 ms Atrial flutter with variable A-V block ST elevation consider anterior injury or acute infarct Anterior infarct Abnormal ECG When compared with ECG of 11-DEC-2019 19:19, Atrial flutter has replaced Atrial fibrillation Confirmed by Jose De Jesus Cho ([id number]) on 12/12/2019 7:43:30 AM Referred By: REFERRED SELF Confirmed By:Jose De Jesus Cho
[2019-12-12] MEDS ORDERED: ATROPINE SULFATE 1% OP SOLN 2 ML BTL SL PRN (08:04)
[2019-12-12] MEDS ORDERED: LORazepam 0.5 MG/1 ML VIAL IV PRN (08:04)
[2019-12-12] MEDS ORDERED: ONDANSETRON 4 MG OD TAB SL PRN (08:04)
[2019-12-12] MEDS ORDERED: ONDANSETRON INJ 2 MG/ML 2 ML VIAL IV PRN (08:04)
[2019-12-12] MEDS ORDERED: LORazepam 0.5 MG TAB PO PRN (08:04)
[2019-12-12] MEDS ORDERED: STAT IV Infusion **Titration per Protocol STA (08:05)
[2019-12-12] MEDS: METOPROLOL TARTRATE 25 MG TAB PO SCH ×2 (08:15→20:35)
[2019-12-12] MEDS: ASPIRIN 81 MG ECTAB PO SCH (08:15)
[2019-12-12] MEDS: CEROVITE ADV FORMULA TAB PO SCH (08:15)
[2019-12-12] MEDS: ATORVASTATIN 40 MG TAB PO SCH (08:15)
[2019-12-12] MEDS: TICAGRELOR 90 MG TAB PO SCH ×2 (08:15→20:35)
[2019-12-12] MEDS ORDERED: MoRPHine SULF/NSS 250 MG/250 ML BTL IV SCH (08:15)
[2019-12-12] MEDS: HEPARIN SOD 5,000 UNIT/0.5 ML VIAL SQ SCH ×2 (08:16→19:49)
[2019-12-12] MEDS ORDERED: lisinopriL 5 MG TAB PO SCH (09:00)
--- NOTE | 2019-12-12 11:01 | Critical Care Progress Note ---
Date of Service December 12, 2019 Assessment & Plan (1) STEMI (ST elevation myocardial infarction): Impression: 64-year-old male with acute WI with ST elevation in anterior leads presents post cath where he received MICHELE to proximal LAD x1 Neuro - [facility] ICU: Negative Diabetic neuropathycontinue gabapentin Cardiac - STEMIstatus post successful PCI with single MICHELE to the proximal LAD which was 100% occluded -Patient's chest pain and ST elevation on EKG have improved following catheterization with PCI -We will trend troponins for peak -Aspirin, Brilinta, Lipitor, MTP, lisinopril -A1c 5.9, follow-up lipid panel in a.m. -Maximize electrolyte -Morning echo completed results pending PAFpatient reports to have had A. 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 -Now in sinus rhythm on telemetry -Patient will likely need long-term anticoagulation -We will maximize electrolytes, and continue to monitor on telemetry Respiratory - Patient has history of 50 years of cigarette smoking, no diagnosis of COPD -Currently maintaining oxygen saturation on room air, will continue to monitor with a continuous pulse ox GI - Heart healthy diet RENAL/LYTES - CKDcreatinine improved with hydration -Avoid nephrotoxins - Strict I's and O ENDO - DM type II (controlled)patient's hemoglobin A1c 5.9, controlled with glipizide and metformin -Holding oral medications, will transition to sliding scale -ICU hyperglycemic protocol No history of thyroid disease, TSH within normal limits HEME - H&H stable, monitor routine CBCs ID - No indication for infectious process at this time LINES/IV ACCESS - Peripheral IVs DVT PROPHYLAXIS - SCDs, heparin Stable for downgrade out of ICU today (2) Diabetes mellitus type II, controlled: (3) Acute WI: (4) Diabetic peripheral neuropathy: (5) Hypercholesterolemia: (6) Hypertension: (7) Paroxysmal atrial fibrillation: (8) CKD (chronic kidney disease): Admission and Anticipated Discharge Date Admission Date: December 11, 2019 Subjective Patient largely chest pain-free. Hoping to be discharged soon as he does not like the bed. Advised that he is able to ambulate as needed and can sit in a chair. Review of Systems Review of Systems: Chest discomfort not esthela pain as he was experiencing upon presentation. Physical Exam Physical Exam: General: Alert. nontoxic. Skin: Warm, dry, Head: Atraumatic Ears, nose, mouth and throat: airway patent Cardiovascular: Normal peripheral perfusion Respiratory: no respiratory distress Gastrointestinal: Non distended Musculoskeletal: No deformity Results & Data Results & Data ([facility]) Vital Signs (Past 12 Hours) Vital Signs Temp Pulse Pulse Resp BP BP Pulse Ox 12/12/19 08:00 36.8 C 86 22 95/60 L 97 12/12/19 07:00 85 16 99/64 L 96 12/12/19 05:40 85 16 97/58 L 95 12/12/19 04:40 37.0 C 87 15 109/75 94 12/12/19 03:40 77 13 108/74 95 12/12/19 02:40 81 12 102/56 L 96 12/12/19 01:40 88 12 95/64 L 95 12/12/19 00:42 85 16 103/73 95 12/11/19 23:42 37.4 C 77 14 101/62 95 Coding Level of Care Code 12503 Subseq Hosp Care Lvl 3 Diagnoses STEMI (ST elevation myocardial infarction) I21.3 Diabetes mellitus type II, controlled E11.9 Acute WI I21.9 Diabetic peripheral neuropathy E11.42 Hypercholesterolemia E78.00 Hypertension I10 Paroxysmal atrial fibrillation I48.0 CKD (chronic kidney disease) N18.9
--- NOTE | 2019-12-12 12:52 | Electrocardiogram Report ---
Test Reason : Blood Pressure : / mmHG Vent. Rate : 076 BPM Atrial Rate : 076 BPM P-R Int : 174 ms QRS Dur : 114 ms QT Int : 396 ms P-R-T Axes : 055 090 082 degrees QTc Int : 445 ms Normal sinus rhythm Rightward axis Anteroseptal infarct (cited on or before 11-DEC-2019) Evolving Anterior IN ages with persistent ST elevation Abnormal ECG When compared with ECG of 12-DEC-2019 04:33, Sinus rhythm has replaced Atrial flutter Serial changes of evolving Anteroseptal infarct Present Confirmed by Jameel Sutton ([id number]) on 12/12/2019 12:52:27 PM Referred By: REFERRED SELF Confirmed By:Jameel Sutton
--- NOTE | 2019-12-12 14:48 | Pharmacy Report ---
Glycemic Control Consultation - Date of Service December 12, 2019 - Scope Scope: Glycemic Pharmacist consulted for glycemic control and to write orders per [facility] inpatient glycemic control protocol. - Objective Weight: 110.2 kg Accuchecks BSG (last 24hrs): 12/11/19 12/11/19 12/11/19 17:27 17:31 20:44 Glucose 200 H POC Glucose 195 H POC Glucose (other) 200 H 12/11/19 12/12/19 12/12/19 23:56 03:46 06:10 Glucose 149 H POC Glucose 153 H 168 H POC Glucose (other) 12/12/19 12/12/19 07:15 11:37 Glucose POC Glucose 141 H 146 H POC Glucose (other) Laboratory Data (last 24hrs): 12/11/19 12/12/19 17:27 06:10 Potassium 4.3 4.1 Carbon Dioxide 26 26 Anion Gap 6.0 5.0 Creatinine 1.38 0.98 D Est Cr Clr Drug Dosing 68.3 96.3 HbA1c: Hemoglobin A1c 5.9 % (4.5-5.6) H 12/12/19 06:10 - Recent Pertinent Medications Outpatient Anti-diabetic Regimen: * Glipizide 10mg PO BID * Metformin 1g PO BID * A1c = 5.9 % 12/11/19 Risk Factors for Insulin Resistance: * Recent Surgery: S/P PCI * Diet: Type 2 DM - Assessment & Plan Assessment & Plan: ASSESSMENT: * 64 year old male presented in atrial fibrillation, s/p PCI with single drug-eluting stent. * Well controlled type 2 diabetic, requiring some correctional insulin only. * Pt is maintained on oral antidiabetic agents as an outpatient * Oral agents are not recommended for inpatient use d/t drug interactions, changing PO intake, and difficulty titrating for acute hyper/hypoglycemia. ADA recommends re-initiating outpatient oral agents 1-2 days prior to discharge if/when appropriate if they were held on admission. * Will hold oral agents for admission and continue SQ correctional and prandial insulin at this time. * No basal indicated based on blood sugars at this time. PLAN FOR INPATIENT GLYCEMIC CONTROL: * Holding outpatient oral diabetes medications * Bolus insulin * NovoLog per scale ACHS or Q6hrs while NPO * Goal Range: Low 120 mg/dL - High 160 mg/dL - slightly higher to prevent hypoglycemia. * Correction Factor: 20 mg/dL/unit * Nutritional / Prandial insulin per carb ratio of 1 unit per 15 grams CHO consumed * Please note that the plan above was derived based on current level of insulin resistance and hospital stress. These recommendations are appropriate for inpatient admission only. Plan of care upon discharge will need to be reassessed to avoid potential outpatient hypo/hyperglycemia. Thank you.
--- NOTE | 2019-12-12 16:12 | Cardiology Progress Note ---
Date of Service December 12, 2019 Assessment & Plan (1) Acute MO: --Post primary PCI to acute prox LAD occlusion with single MICHELE 2. Minimal non-culprit disease 3. Mild LV dysfunction with anterior wma 4. Paroxysmal atrial fibrillation 5. Type 2 DM 6. Severe concentric LVH Chest pain free. Troponin peaked. Mild relative asymptomatic hypotension on SUZANNA/BB. Electrically stable. Now back in sinus rhythm No heart failure on exam Mild LV dysfunction on echo -- Transition ticagrelor to clopidogrel tomorrow (300 mg in AM, then 75 daily). -- start eliquis for PAF and elevated cardioembolic risk -- continue aspirin while admitted -- continue beta-inna, SUZANNA -- continue statin -- additional imaging of LVH as an outpatient. -- From a cardiac standpoint OK with transition to telemetry today. Likely home tomorrow. Admission and Anticipated Discharge Date Admission Date: December 11, 2019 Subjective Feeling well. No chest pain. Sitting up in chair. Rare shortness of breath. Biggest complaint is back from hospital bed. Tele reviewed -- no arrhythmia Review of Systems Review of Systems: All systems reviewed & are unremarkable except as noted in HPI & below Physical Exam Physical Exam: General: comfortable HEENT: Sclerae anicteric, mucous membranes moist Lungs: lungs clear Cardiac: regular, no murmurs Abdomen: Soft, nontender, nondistended, positive bowel sounds. Extremities: Warm, well perfused, no edema. right radial artery no hematoma. intact pulse and distal sensation. Skin: No rashes or lesions. Neuro: Nonfocal Psych: Alert orient x3, normal affect and mood Results & Data ([facility]) Vital Signs (Past 12 Hours) Vital Signs Temp Pulse Pulse Resp BP BP Pulse Ox 12/12/19 15:03 98.6 F 67 23 86/57 L 94 12/12/19 14:00 73 16 109/77 95 12/12/19 13:00 70 16 92/54 L 95 12/12/19 12:00 73 16 92/54 L 91 12/12/19 11:00 98.1 F 73 17 90/66 L 95 12/12/19 10:40 68 13 91/63 L 97 12/12/19 10:00 74 16 93/56 L 90 12/12/19 09:40 76 21 93/56 L 94 12/12/19 08:00 98.2 F 86 22 95/60 L 97 12/12/19 07:00 85 16 99/64 L 96 12/12/19 05:40 85 16 97/58 L 95 12/12/19 04:40 98.6 F 87 15 109/75 94 PG Care Time/CCT Total # of Minutes Spent Total Time Spent with Patient: Total time spent is greater than 50% in coordination of care (as documented) at patient's floor/unit and/or counseling patient: Coding Level of Care Code 19703 Subseq Hosp Care Lvl 3 Diagnoses Acute MO I21.9
--- NOTE | 2019-12-12 19:22 | Hospitalist Progress Note ---
Date of Service December 12, 2019 Assessment & Plan (1) STEMI (ST elevation myocardial infarction): ASA 81mg PO daily, [facility], Eliquis 5mg BID Transferred to PCU as per Dr Garg Metoprolol tartrate 25mg PO BID Lisinopril 2.5 mg PO daily Atorvastatin 80mg PO QAM Stop ibuprofen TTE - LVEF 40% with extensive LAD wall motion abnormality HbA1C 5.9 - diabetes controlled (see below) LDL 47 (while on simvastatin) (2) Diabetes mellitus type II, controlled: HbA1C 5.9 Stop glipizide Appreciate pharmacy glycemic control with bolus sliding scale insulin +/- basal Consider switching to SGLT2 inhibitor given improved cardiovascular risk reduction with this as outpatient (3) Diabetic peripheral neuropathy: Continue home dose Gabapentin 600mg HS (4) Hypercholesterolemia: Continue atorvastatin 40mg PO daily (5) Hypertension: Currently hypotensive Continue lisinopril 2.5mg PO daily, reduced dose due to hypotension (6) Lumbosacral radiculopathy: Stop ibuprofen Use acetaminophen for pain Early ambulation when cleared by cardiology (7) Paroxysmal atrial fibrillation: Back in NSR Rate control with metoprolol tartrate 25mg PO BID Anticoagulation with Eliquis (8) Tobacco use disorder: 2 packs/day Discussed smoking cessation - encouraged patient to follow up with family physician regarding Chantix and Wellbutrin Refused nicotine replacement products at the current time Not particularly engaged in conversation and watching TV throughout (9) DVT prophylaxis: Eliquis as above Admission and Anticipated Discharge Date Admission Date: December 11, 2019 Anticipated date of discharge: 12/13/19 Subjective Sitting up at bedside eating. No chest pain since cardiac cath. Back in NSR on telemetry and EKG this morning. No palpitations, shortness of breath, orthopnea, PND or leg swelling. Didn't sleep well last night due to the bed and likely not receiving his usual ibuprofen causing worsening of his chronic left lumbar radicular pain. No arrhythmias on telemetry. Review of Systems Review of Systems: All systems reviewed & are unremarkable except as noted in HPI & below Physical Exam Constitutional: well developed; + not well nourished and no acute distress Eyes: + anicteric sclerae; normal pupil size Respiratory: normal respiratory effort, lungs clear to auscultation Cardiovascular: Rate/Rhythm: regular rate and regular rhythm Heart Sounds: no murmur Vessels: no JVD Extremities: no pedal edema Neurologic: moves all extremities and awake; not confused Psychiatric: Orientation: alert and oriented x 3 Eye Contact: + poor eye contact Affect: euthymic affect Results & Data Results & Data ([facility]) Vital Signs (Past 12 Hours) Vital Signs Temp Pulse Pulse Resp BP BP Pulse Ox 12/12/19 18:13 37.1 C 75 20 98/67 L 98 12/12/19 16:00 65 16 12/12/19 15:03 37.0 C 67 23 86/57 L 94 12/12/19 14:00 73 16 109/77 95 12/12/19 13:00 70 16 92/54 L 95 12/12/19 12:00 73 16 92/54 L 91 12/12/19 11:00 36.7 C 73 17 90/66 L 95 12/12/19 10:40 68 13 91/63 L 97 12/12/19 10:00 74 16 93/56 L 90 12/12/19 09:40 76 21 93/56 L 94 12/12/19 08:00 36.8 C 86 22 95/60 L 97 PG Care Time/CCT Total # of Minutes Spent Total Time Spent with Patient: Total time spent is greater than 50% in coordination of care (as documented) at patient's floor/unit and/or counseling patient: Coding Level of Care Code 21542 Subseq Hosp Care Lvl 2 Diagnoses STEMI (ST elevation myocardial infarction) I21.3 Diabetes mellitus type II, controlled E11.9 Diabetic peripheral neuropathy E11.42 Hypercholesterolemia E78.00 Hypertension I10 Lumbosacral radiculopathy M54.17 Paroxysmal atrial fibrillation I48.0 Tobacco use disorder F17.200 DVT prophylaxis Z29.9
[2019-12-12] MEDS: GABAPENTIN 600 MG TAB PO SCH (20:36)
[2019-12-12] MEDS: APIXABAN 5 MG TABLET PO SCH (21:45)
[2019-12-13 06:53] LABS: Hematocrit (blood only) 40.2 % (42-52); Hemoglobin 13.5 g/dL (14.0-18.0); Mean Corpuscular Hemoglobin 34.2 pg (25-34); Mean Corpuscular Hgb Conc 33.6 g/dL (32-36); Mean Corpuscular Volume 101.8 fL (80-100); Mean Platelet Volume 12.1 fL (7.4-10.4); Platelet Count 124 K/uL (130-400); RDW Standard Deviation 52.4 fL (36.4-46.3); Red Blood Count 3.95 M/uL (4.7-6.1); White Blood Count 11.53 K/uL (4.8-10.8)
[2019-12-13 07:13] LABS: BUN Creatinine Ratio 20.3 (10-20); Calcium 9.5 mg/dl (8.5-10.1); Creatinine Clr Calc Pharmacy 95.4 ml/min; Est GFR (African American) 92.2; Est GFR (Non-African American) 79.6; Magnesium 2.1 mg/dl (1.8-2.4); Phosphorus 2.7 mg/dl (2.5-4.9); Potassium 4.2 mmol/L (3.5-5.1)
[2019-12-13 07:21] LABS: Basophils # (auto) 0.02 K/uL (0-0.2); Basophils % (auto) 0.2 %; Eosinophils # (auto) 0.04 K/uL (0-0.5); Eosinophils % (auto) 0.3 %; Giant Platelets 1+; Immature Granulocytes # (auto) 0.03 K/uL (0.00-0.02); Immature Granulocytes % (auto) 0.3 %; Lymphocytes # (auto) 1.58 K/uL (1.2-3.4); Lymphocytes % (auto) 13.7 %; Monocytes # (auto) 1.13 K/uL (0.11-0.59); Monocytes % (auto) 9.8 %; Neutrophils # (auto) 8.73 K/uL (1.4-6.5); Neutrophils % (auto) 75.7 %
[2019-12-13] MEDS: ASPIRIN 81 MG ECTAB PO SCH (07:37)
[2019-12-13] MEDS: APIXABAN 5 MG TABLET PO SCH (07:38)
[2019-12-13] MEDS: METOPROLOL TARTRATE 25 MG TAB PO SCH (07:38)
[2019-12-13] MEDS: CEROVITE ADV FORMULA TAB PO SCH (07:38)
[2019-12-13] MEDS: ATORVASTATIN 40 MG TAB PO SCH (07:38)
[2019-12-13] MEDS: HEPARIN SOD 5,000 UNIT/0.5 ML VIAL SQ SCH (07:39)
[2019-12-13] MEDS ORDERED: CLOPIDOGREL BISULFATE 300 MG TAB PO ONE (08:00)
[2019-12-13] MEDS: INSULIN ASPART 100 UNITS/ML 3 ML PEN SC SCH (08:18)
--- NOTE | 2019-12-13 10:27 | Discharge Summary ---
Date of Service December 13, 2019 Admission HPI Per Admitting Provider Matthew Thornton is a 64 year old male who presented to the ER as a heart alert with severe substernal chest pain. He reports intermittent jaw and right arm tingling with feeling hot and occasional episode on exertion for the past 4 days. Actually was doing better yesterday as he wasn't moving around much. However on walking up the stairs today around 3pm he had sudden onset 8/10 pain which did not relieve until coronary artery intervention in the [facility]. Associated diaphoresis. In the ER patient was in atrial fibrillation with ST elevations in anterior leads and he was taken emergently to the [facility]. Patient had ST elevation on his anterior leads of his EKG and heart alert was initiated. Patient given ASA and loaded with Brillinta. 100% occluded proximal LAD, received successful PCI with single drug-eluting stent. Patient remains in atrial fibrillation post cardiac stent. His main concern at present is his chronic left lumbar radiculopathy and diabetic neuropathy for which he takes ibuprofen 400-600mg B ID. Significant risk factors with smoking 2 packs/day, obesity, HTN, hyperlipidemia, diabetes. Specialty Data Cardiology Cardiac catheterization/PCI 12/11/2019: 1. Anterior STEMI/Occluded proximal LAD 2. Minimal non-culprit coronary artery disease -40% mid LAD 30% mid RCA 3. Elevated intracardiac filling pressure 4. Successful PCI of proximal LAD with single drug-eluting stent (4.0 x 28 mm Xience; postdilated with 5.0 NC balloon). Discharge Data Consultations 12/11/19 18:59 Consult Cardiac Rehabilitation Routine 12/11/19 19:00 Consult Case Management - Discharge Planning Routine Consult Computer Engineering Professor Routine 12/11/19 19:14 Consult Computer Engineering Professor Routine Procedures Performed Operation Date: 12/11/19 17:30 Actual Procedures p Cineradiography w/Routine Exam - Delano Garg MD p Aspiration/PCI w/MICHELE for Stemi - Delano Garg MD s Cath, Left with Cors and Vent - Delano Garg MD Hospital Course (1) STEMI (ST elevation myocardial infarction): Patient taken emergently for cardiac catheterization the setting of anterior TX. Found to have a proximally occluded LAD which was treated with a single drug-eluting stent. Minimal non-culprit coronary artery disease. Post procedure he was admitted to the ICU for further observation. He was initially in asymptomatic, rate controlled atrial fibrillation but converted spontaneously to sinus rhythm the first night post procedure. He had no additional chest pain. Was otherwise electrically stable. Echocardiogram showed a dilated/globular shaped heart with severe concentric LVH, EF 40% with anterior wall motion abnormality. Troponin peaked at 92. No right radial artery access site complications. Patient was noted to have prior atrial fibrillation back in 2006. He was thought to be at elevated risk for cardioembolic events and was started on Eliquis. On hospital day 3 he was discharged to home on dual therapy with clopidogrel and Eliquis which should continue for at least the next year. Also discharged on new metoprolol and home lisinopril dose reduced. Follow-up with cardiology in 2 weeks. Repeat LV assessment at some point as an outpatient. Discharge Instructions Home Medications vitamins A,C,B-[id number] 14,320 unit-226 mg-200 unit capsule 1 cap PO BID 01/22/19 [History Confirmed 12/11/19] gabapentin 600 mg tablet 600 mg PO HS #90 tab 07/31/19 [Rx Confirmed 12/11/19] glipizide 10 mg tablet 10 mg PO BID #180 tab 07/31/19 [Rx Confirmed 12/11/19] metformin 1,000 mg tablet 1,000 mg PO BID #180 tab 07/31/19 [Rx Confirmed 12/11/19] simvastatin 80 mg tablet 80 mg PO DAILY #90 tab 07/31/19 [Rx Confirmed 12/11/19] apixaban [Eliquis] 5 mg PO BID #60 tab 12/13/19 [Rx] clopidogrel 75 mg PO QAM #30 tab 12/13/19 [Rx] lisinopril 5 mg PO DAILY #90 tab 12/13/19 [Rx Confirmed 12/11/19] metoprolol tartrate 25 mg PO BID #30 tab 12/13/19 [Rx] nitroglycerin [Nitrostat] 0.4 mg SUBLINGUAL UD PRN #30 tab 12/13/19 [Rx] Coding Level of Care Code D/C Day Management <30 mins Diagnoses STEMI (ST elevation myocardial infarction) I21.3
--- NOTE | 2019-12-13 10:52 | Hospitalist Progress Note ---
Date of Service December 13, 2019 Assessment & Plan (1) STEMI (ST elevation myocardial infarction): Anterior wall AZ 2nd to LAD occlusion s/p MICHELE by Dr Garg at time of admission. Cont ASA 81mg PO daily Cont plavix Cont Metoprolol tartrate 25mg PO BID Cont Lisinopril 2.5 mg PO daily Cont Atorvastatin 80mg PO QAM No further ibuprofen or NSAIDs f/u Dr Garg in 2 weeks patient understands use of prn nitro and reasons to seek medical attention (2) Diabetes mellitus type II, controlled: HbA1C 5.9 resume oral agents at d/c including metformin as Cr is stable post-contrast at 48 hours (3) Diabetic peripheral neuropathy: Cont Gabapentin 600mg HS (4) Hypercholesterolemia: Continue high-intensity statin (5) Hypertension: on BB, SUZANNA BPs low-normal but no dizziness continue both cautiously (6) Lumbosacral radiculopathy: Stop NSAIDs Use acetaminophen for pain prn (7) Paroxysmal atrial fibrillation: NSR this am Cont metoprolol tartrate 25mg PO BID Eliquis 5mg BID (8) Tobacco use disorder: previously counseled to quit by prior attending (9) Macrocytosis: Check b12/folate TSH noted to be normal no h/o liver disease (10) Thrombocytopenia: check B12/folate f/u with PCP for this patient informed of mildly low platelets from medical standpoint can d/c home f/u Dr Garg 2 weeks f/u PCP 1 week Admission and Anticipated Discharge Date Admission Date: December 11, 2019 Subjective no events overnight feeling good no chest pain or dyspnea no issues with right wrist cath site Review of Systems Respiratory: no cough and no dyspnea Cardiovascular: no chest pain and no edema Gastrointestinal: no abdominal pain Physical Exam Constitutional: no acute distress and no altered mental status ENMT: external ear and nose normal, oropharynx normal Mouth: + poor dentition Respiratory: normal respiratory effort, lungs clear to auscultation Cardiovascular: Rate/Rhythm: regular rate and regular rhythm Heart Sounds: normal S1 and normal S2; no murmur Vessels: posterior tibial pulses present, dorsalis pedis pulses present and radial pulses present; no JVD Extremities: no edema Gastrointestinal (Abdomen): normal bowel sounds, soft, nontender, no hepatosplenomegaly Skin: no hematoma over right wrist Psychiatric: A+Ox3, euthymic affect Results & Data Results & Data ([place]) Vital Signs (Past 12 Hours) Vital Signs Temp Pulse Pulse Resp BP Pulse Ox 12/13/19 09:43 37 C 75 18 94/65 L 93 12/13/19 08:00 67 12/13/19 07:21 37 C 75 18 94/65 L 93 12/13/19 02:54 37.2 C 71 18 91/53 L 96 12/12/19 23:48 66 12/12/19 23:06 36.7 C 69 18 113/69 97 Laboratory Results Laboratory Results - last 24 hr 12/12/19 12/12/19 12/12/19 09:59 11:37 16:31 WBC RBC Hgb Hct MCV MCH MCHC RDW Std Deviation RDW Coeff of Angelica Plt Count MPV Immature Gran % (Auto) Neut % (Auto) Lymph % (Auto) [place] % (Auto) Eos % (Auto) Baso % (Auto) Neut # (Auto) Lymph # (Auto) [place] # (Auto) Eos # (Auto) Baso # (Auto) Immature Gran # (Auto) Giant Platelets Sodium Potassium Chloride Carbon Dioxide Anion Gap BUN Creatinine Est Cr Clr Drug Dosing Est GFR ( Amer) Est GFR (Non-Af Amer) BUN/Creatinine Ratio Glucose POC Glucose 146 H 158 H Calcium Phosphorus Magnesium Troponin I 59.600 H* Vitamin B12 Folate 12/12/19 12/13/19 12/13/19 20:39 06:25 06:25 WBC 11.53 H RBC 3.95 L Hgb 13.5 L Hct 40.2 L MCV 101.8 H MCH 34.2 H MCHC 33.6 RDW Std Deviation 52.4 H RDW Coeff of Angelica 14.0 Plt Count 124 L MPV 12.1 H Immature Gran % (Auto) 0.3 Neut % (Auto) 75.7 Lymph % (Auto) 13.7 [place] % (Auto) 9.8 Eos % (Auto) 0.3 Baso % (Auto) 0.2 Neut # (Auto) 8.73 H Lymph # (Auto) 1.58 [place] # (Auto) 1.13 H Eos # (Auto) 0.04 Baso # (Auto) 0.02 Immature Gran # (Auto) 0.03 H Giant Platelets 1+ Sodium 139 Potassium 4.2 Chloride 107 Carbon Dioxide 27 Anion Gap 5.0 BUN 20 H Creatinine 0.99 Est Cr Clr Drug Dosing 95.4 Est GFR ( Amer) 92.2 Est GFR (Non-Af Amer) 79.6 BUN/Creatinine Ratio 20.3 H Glucose 149 H POC Glucose 168 H Calcium 9.5 Phosphorus 2.7 Magnesium 2.1 Troponin I Vitamin B12 Folate 12/13/19 12/13/19 07:19 08:57 WBC RBC Hgb Hct MCV MCH MCHC RDW Std Deviation RDW Coeff of Angelica Plt Count MPV Immature Gran % (Auto) Neut % (Auto) Lymph % (Auto) [place] % (Auto) Eos % (Auto) Baso % (Auto) Neut # (Auto) Lymph # (Auto) [place] # (Auto) Eos # (Auto) Baso # (Auto) Immature Gran # (Auto) Giant Platelets Sodium Potassium Chloride Carbon Dioxide Anion Gap BUN Creatinine Est Cr Clr Drug Dosing Est GFR ( Amer) Est GFR (Non-Af Amer) BUN/Creatinine Ratio Glucose POC Glucose 164 H Calcium Phosphorus Magnesium Troponin I Vitamin B12 Pending Folate Pending PG Care Time/CCT Total # of Minutes Spent Total Time Spent with Patient: Total time spent is greater than 50% in coordination of care (as documented) at patient's floor/unit and/or counseling patient: Coding Level of Care Code 10233 Subseq Hosp Care Lvl 2 Diagnoses STEMI (ST elevation myocardial infarction) I21.3 Diabetes mellitus type II, controlled E11.9 Diabetic peripheral neuropathy E11.42 Hypercholesterolemia E78.00 Hypertension I10 Lumbosacral radiculopathy M54.17 Paroxysmal atrial fibrillation I48.0 Tobacco use disorder F17.200 Macrocytosis D75.89 Thrombocytopenia D69.6
[2019-12-13 12:16] LABS: Folate (Folic Acid) 14.44 ng/ml (>5.38)
[2019-12-14] MEDS ORDERED: CLOPIDOGREL BISULFATE 75 MG TAB PO SCH (09:00)
== END 2019-12-13 10:52 | disposition home or self-care (01) | DRG 246 ==
LOC: ED 17:05 → CC 17:45 → 1E 19:00 → 2S 12-12 18:11